=== PATIENT | female | born 1990 | race African-American/Black ===

== ENCOUNTER 2016-12-29 13:01 | Emergency (ER) | payer BC, OTHER ==
[~2016-12-29] VITALS: Ht 170.2 cm; Wt 102.0 kg
[2016-12-29 13:03] VITALS: BP 132/87; PULSE 77; RESP 12; TEMP 98.1; O2SAT 98
--- NOTE | 2016-12-29 13:47 | PD ---
HPI Chief Complaint: Cardiac Complaint Time Seen by Provider: 13:41 Travel History International Travel<30 days: No Contact w/Intl Traveler<30days: No Traveled to known affect area: No History of Present Illness HPI Patient is a 26-year-old female presenting to the emergency department for evaluation of 2 complaints. The first one being difficulty swallowing, patient states that she feels as if things are getting stuck in her throat. She has been able to get fluids down but avoids foods that are hard to swallow. She reports a history of bulimia and for the last 2 months anytime she eats anything solid she vomits. Her second complaint is a feeling of tightness in her chest with palpitations. She states this is been going on for approximately 9 days. It is accompanied by shortness of breath and left arm numbness. Patient does report a history of anxiety with panic attacks. She denies any headaches, abdominal pain, back pain, diarrhea. She reports a history of heart disease in her grandmother. Patient is a daily smoker but denies any significant alcohol use. She states that she did quit smoking marijuana approximately one month ago. [facility] Past Medical History Anxiety: Yes Depression: Yes Heart Rhythm Problems: Yes (history of palpitations) Diminished Hearing: No Medical other: Yes (history of bulimia) Musculoskeletal: Yes (chronic lumbar back pain) ?: Not LMP: 12/2016 : 2 Miscarriage: 1 : 1 Ectopic : No Ovarian Cysts: No Dilation and Curettage (D&C): No Tubal Ligation: No Past Surgical History Surgical History: No Previous Surgery Social History Alcohol Use: Yes ([facility]) Tobacco Use: Yes Substance Use: No Allergies-Medications (Allergen,Severity, Reaction): Coded Allergies: No Known Allergies (Verified , 12/29/16) Reported Meds & Prescriptions Reported Meds & Active Scripts Active Zofran (Ondansetron HCl) 4 Mg Tab 4 Mg PO Q6HR PRN Vistaril (Hydroxyzine Pamoate) 50 Mg Cap 50 Mg PO TID PRN Protonix (Pantoprazole Sodium) 20 Mg Tab 20 Mg PO DAILY Zantac (Ranitidine HCl) 150 Mg Tab 150 Mg PO BID PRN Review of Systems Except as stated in HPI: all other systems reviewed are Neg General / Constitutional: No: Fever, Chills Eyes: No: Visual changes HENT: No: Headaches, Lightheadedness, Neck Stiffness Cardiovascular: Positive: Palpitations, Tachycardia, No: Chest Pain or Discomfort Respiratory: Positive: Shortness of Breath (with palpitations) Gastrointestinal: Positive: Nausea, Vomiting, No: Abdominal Pain Neurologic: No: Weakness, Dizziness, Syncope Psychiatric: Positive: Anxiety Physical Exam Narrative GENERAL: Well-developed, well-nourished, alert female. Resting comfortably in no acute distress. SKIN: Warm and dry. HEAD: Atraumatic. Normocephalic. EYES: Pupils equal and round. No scleral icterus. No injection or drainage. ENT: No nasal bleeding or discharge. Mucous membranes pink and moist. NECK: Trachea midline. No JVD. CARDIOVASCULAR: Regular rate and rhythm. No murmur appreciated. RESPIRATORY: No accessory muscle use. Clear to auscultation. Breath sounds equal bilaterally. GASTROINTESTINAL: Abdomen soft, non-tender, nondistended. Hepatic and splenic margins not palpable. MUSCULOSKELETAL: No obvious deformities. No clubbing. No cyanosis. No edema. NEUROLOGICAL: Awake and alert. No obvious cranial nerve deficits. Motor grossly within normal limits. Normal speech. PSYCHIATRIC: Anxious mood and affect; insight and judgment normal. Data Data Last Documented VS Vital Signs Date Time Temp Pulse Resp B/P Pulse Ox O2 Delivery O2 Flow Rate FiO2 12/29/16 16:03 98 Room Air 12/29/16 15:37 71 15 119/70 12/29/16 13:03 98.1 Orders Electrocardiogram (12/29/16 13:35) Ckmb (Isoenzyme) Profile (12/29/16 13:35) Complete Blood Count With Diff (12/29/16 13:35) Comprehensive Metabolic Panel (12/29/16 13:35) Magnesium (Mg) (12/29/16 13:35) Prothrombin Time / Inr (Pt) (12/29/16 13:35) Act Partial Throm Time (Ptt) (12/29/16 13:35) Troponin I (12/29/16 13:35) Thyroid Stimulating Hormone (12/29/16 13:35) Barium Swallow (12/29/16 ) Chest, Single Ap (12/29/16 ) Ondansetron Inj (Zofran Inj) (12/29/16 16:00) Pantoprazole Inj (Protonix Inj) (12/29/16 16:00) Famotidine Inj (Pepcid Inj) (12/29/16 16:00) Al-Mag Hy-Si 40-40-4 Mg/Ml Liq (Mag-Al P (12/29/16 16:00) Lidocaine 2% Viscous (Xylocaine 2% Visco (12/29/16 16:00) Ed Urine Pregnancytest Poc (12/29/16 16:02) CKMB (12/29/16 15:20) CKMB% (12/29/16 15:20) Labs Laboratory Tests Test 12/29/16 15:20 White Blood Count 13.4 TH/MM3 Red Blood Count 4.09 MIL/MM3 Hemoglobin 12.4 GM/DL Hematocrit 37.8 % Mean Corpuscular Volume 92.5 FL Mean Corpuscular Hemoglobin 30.5 PG Mean Corpuscular Hemoglobin 32.9 % Concent Red Cell Distribution Width 13.2 % Platelet Count 347 TH/MM3 Mean Platelet Volume 7.4 FL Neutrophils (%) (Auto) 76.6 % Lymphocytes (%) (Auto) 15.4 % Monocytes (%) (Auto) 6.1 % Eosinophils (%) (Auto) 1.4 % Basophils (%) (Auto) 0.5 % Neutrophils # (Auto) 10.3 TH/MM3 Lymphocytes # (Auto) 2.1 TH/MM3 Monocytes # (Auto) 0.8 TH/MM3 Eosinophils # (Auto) 0.2 TH/MM3 Basophils # (Auto) 0.1 TH/MM3 CBC Comment DIFF FINAL Differential Comment Prothrombin Time 10.3 SEC Prothromb Time International 0.9 RATIO Ratio Activated Partial 25.3 SEC Thromboplast Time Sodium Level 139 MEQ/L Potassium Level 3.6 MEQ/L Chloride Level 106 MEQ/L Carbon Dioxide Level 24.9 MEQ/L Anion Gap 8 MEQ/L Blood Urea Nitrogen 13 MG/DL Creatinine 0.70 MG/DL Estimat Glomerular Filtration 122 ML/MIN Rate Random Glucose 87 MG/DL Calcium Level 8.5 MG/DL Magnesium Level 1.9 MG/DL Total Bilirubin 0.2 MG/DL Aspartate Amino Transf 17 U/L (AST/SGOT) Alanine Aminotransferase 23 U/L (ALT/SGPT) Alkaline Phosphatase 54 U/L Total Creatine Kinase 135 U/L Creatine Kinase MB LESS THAN 0.5 NG/ML Troponin I LESS THAN 0.02 NG/ML Total Protein 7.3 GM/DL Albumin 3.7 GM/DL Thyroid Stimulating Hormone 1.640 uIU/ML 3rd Gen [facility] Medical Decision Making Medical Screen Exam Complete: Yes Emergency Medical Condition: Yes Interpretation(s) Vital Signs Date Time Temp Pulse Resp B/P Pulse Ox O2 Delivery O2 Flow Rate FiO2 12/29/16 13:03 98.1 77 12 132/87 98 Room Air Differential Diagnosis Esophageal strictures versus obstruction versus esophagitis versus anxiety attack versus cardiac arrhythmia versus AMI versus other Narrative Course Patient is a 26-year-old female presenting to the emergency department with 2 separate complaints, one is difficulty swallowing and vomiting. The second is chest tightness and palpitations. EKG, labs ordered and pending. Patient has a history of bulimia, she could be suffering from esophagitis, GERD, strictures. Additionally patient has a history of anxiety with panic attacks. At this time we will check electrolytes, cardiac enzymes, EKG, TSH. Patient will be placed in a medical bed in care of be assumed by provider when available. Patient's vital signs are currently stable. Scripts Ondansetron (Zofran)4 Mg Tab4 Mg PO Q6HR PRN (NAUSEA OR VOMITING) #15 TAB Ref 0 Prov:Bruna Reilly MD 12/29/16 Hydroxyzine Pamoate (Vistaril)50 Mg Cap50 Mg PO TID PRN (ANXIETY) #15 CAP Ref 0 Prov:Bruna Reilly MD 12/29/16 Pantoprazole (Protonix)20 Mg Tab20 Mg PO DAILY #20 TAB Ref 0 Prov:Bruna Reilly MD 12/29/16 Ranitidine (Zantac)150 Mg [id number] Mg PO BID PRN (PAIN SCALE 1 TO 10) #20 TAB Prov:Bruna Reilly MD 12/29/16 Chelsea Plasencia Dec 29, 2016 13:46
[2016-12-29 15:36] LABS: AUTOMATED NEUTROPHIL # 10.3 TH/MM3 (1.8-7.7); BASOPHIL # 0.1 TH/MM3 (0-0.2); BASOPHIL % 0.5 % (0.0-2.0); EOSINOPHIL # 0.2 TH/MM3 (0-0.4); EOSINOPHIL % 1.4 % (0.0-4.0); HEMATOCRIT 37.8 % (35.0-46.0); HEMO FLAGS DIFF FINAL; LYMPH % 15.4 % (9.0-44.0); LYMPHOCYTE # 2.1 TH/MM3 (1.0-4.8); MEAN CELL VOLUME 92.5 FL (80.0-100.0); MEAN CORPUSCULAR HEMOGLOBIN 30.5 PG (27.0-34.0); MEAN CORPUSCULAR HGB CONC 32.9 % (32.0-36.0); MONO % 6.1 % (0.0-8.0); NEUT % 76.6 % (16.0-70.0); PLATELET COUNT 347 TH/MM3 (150-450); RED BLOOD COUNT 4.09 MIL/MM3 (4.00-5.30); RED CELL DISTRIBUTION WIDTH 13.2 % (11.6-17.2); WHITE BLOOD COUNT 13.4 TH/MM3 (4.0-11.0)
[2016-12-29 15:37] VITALS: BP 119/70; PULSE 71; RESP 15; O2SAT 97
[2016-12-29 15:46] LABS: APTT (PATIENT) 25.3 SEC (24.3-30.1); INTERNATIONAL NORMALIZED RATIO 0.9 RATIO; PROTHROMBIN TIME - PATIENT 10.3 SEC (9.8-11.6)
[2016-12-29 15:57] LABS: ANION GAP 8 MEQ/L (5-15); AST (GOT) 17 U/L (15-37); BICARBONATE 24.9 MEQ/L (21.0-32.0); BLOOD UREA NITROGEN 13 MG/DL (7-18); CHLORIDE 106 MEQ/L (98-107); GLOMERULAR FILTRATION RATE 122 ML/MIN (>89); MAGNESIUM 1.9 MG/DL (1.5-2.5); POTASSIUM 3.6 MEQ/L (3.5-5.1); SODIUM (NA) 139 MEQ/L (136-145)
[2016-12-29] MEDS ORDERED: ALUMINUM/MAGNESIUM/SIMETH 30 ML CUP PO ONE (16:00)
[2016-12-29] MEDS ORDERED: PANTOPRAZOLE SODIUM 40 MG VIAL IVP ONE (16:00)
[2016-12-29] MEDS ORDERED: ONDANSETRON HCL 4 MG/2 ML VIAL IVP ONE (16:00)
[2016-12-29] MEDS ORDERED: LIDOCAINE VISCOUS 2% SOLN 15 ML UDC PO ONE (16:00)
[2016-12-29] MEDS ORDERED: FAMOTIDINE 20 MG/2 ML VIAL IV PUSH ONE (16:00)
--- NOTE | 2016-12-29 16:02 | PD ---
Physical Exam Date Seen by Provider: Dec 29, 2016 Time Seen by Provider: 15:57 Narrative 26-year-old female that presents to the ED for evaluation of trouble swallowing with nausea and vomiting and history of bulimia as well as chest pain secondary to possible anxiety. Patient states that she continues to make herself throw up. Per patient she cannot eat solids secondary to the discomfort. Per patient she cannot keep anything down other than fluids because it causes her to vomit. She does not and this is related to the bulimia or this is related to something else. She states the chest pain comes and goes. Per patient she' s had panic attacks in the past. Per patient he seemed to be worsening for the past couple of days. Patient was seen by Chelsea JOSPEH before her. Please refer to her history and physical for further information. Data Data Last Documented VS Vital Signs Date Time Temp Pulse Resp B/P Pulse Ox O2 Delivery O2 Flow Rate FiO2 12/29/16 16:03 98 Room Air 12/29/16 15:37 71 15 119/70 12/29/16 13:03 98.1 Orders Electrocardiogram (12/29/16 13:35) Ckmb (Isoenzyme) Profile (12/29/16 13:35) Complete Blood Count With Diff (12/29/16 13:35) Comprehensive Metabolic Panel (12/29/16 13:35) Magnesium (Mg) (12/29/16 13:35) Prothrombin Time / Inr (Pt) (12/29/16 13:35) Act Partial Throm Time (Ptt) (12/29/16 13:35) Troponin I (12/29/16 13:35) Thyroid Stimulating Hormone (12/29/16 13:35) Barium Swallow (12/29/16 ) Chest, Single Ap (12/29/16 ) Ondansetron Inj (Zofran Inj) (12/29/16 16:00) Pantoprazole Inj (Protonix Inj) (12/29/16 16:00) Famotidine Inj (Pepcid Inj) (12/29/16 16:00) Al-Mag Hy-Si 40-40-4 Mg/Ml Liq (Mag-Al P (12/29/16 16:00) Lidocaine 2% Viscous (Xylocaine 2% Visco (12/29/16 16:00) Ed Urine Pregnancytest Poc (12/29/16 16:02) CKMB (12/29/16 15:20) CKMB% (12/29/16 15:20) Labs Laboratory Tests Test 12/29/16 15:20 White Blood Count 13.4 TH/MM3 Red Blood Count 4.09 MIL/MM3 Hemoglobin 12.4 GM/DL Hematocrit 37.8 % Mean Corpuscular Volume 92.5 FL Mean Corpuscular Hemoglobin 30.5 PG Mean Corpuscular Hemoglobin 32.9 % Concent Red Cell Distribution Width 13.2 % Platelet Count 347 TH/MM3 Mean Platelet Volume 7.4 FL Neutrophils (%) (Auto) 76.6 % Lymphocytes (%) (Auto) 15.4 % Monocytes (%) (Auto) 6.1 % Eosinophils (%) (Auto) 1.4 % Basophils (%) (Auto) 0.5 % Neutrophils # (Auto) 10.3 TH/MM3 Lymphocytes # (Auto) 2.1 TH/MM3 Monocytes # (Auto) 0.8 TH/MM3 Eosinophils # (Auto) 0.2 TH/MM3 Basophils # (Auto) 0.1 TH/MM3 CBC Comment DIFF FINAL Differential Comment Prothrombin Time 10.3 SEC Prothromb Time International 0.9 RATIO Ratio Activated Partial 25.3 SEC Thromboplast Time Sodium Level 139 MEQ/L Potassium Level 3.6 MEQ/L Chloride Level 106 MEQ/L Carbon Dioxide Level 24.9 MEQ/L Anion Gap 8 MEQ/L Blood Urea Nitrogen 13 MG/DL Creatinine 0.70 MG/DL Estimat Glomerular Filtration 122 ML/MIN Rate Random Glucose 87 MG/DL Calcium Level 8.5 MG/DL Magnesium Level 1.9 MG/DL Total Bilirubin 0.2 MG/DL Aspartate Amino Transf 17 U/L (AST/SGOT) Alanine Aminotransferase 23 U/L (ALT/SGPT) Alkaline Phosphatase 54 U/L Total Creatine Kinase 135 U/L Creatine Kinase MB LESS THAN 0.5 NG/ML Troponin I LESS THAN 0.02 NG/ML Total Protein 7.3 GM/DL Albumin 3.7 GM/DL Thyroid Stimulating Hormone 1.640 uIU/ML 3rd Gen [facility] Medical Record Reviewed: Yes Supervised Visit with GRISEL: No Interpretation(s) CBC & BMP Diagram 12/29/16 15:20 Chest x-ray negative. Barium swallow did show reducible hernia but otherwise unremarkable. Differential Diagnosis Strictures versus esophagitis versus gastritis versus GERD versus anxiety versus panic attack versus less likely cardiac disease. Narrative Course 26-year-old female that presents to the ED for evaluation of chest pain and inability to swallow. Patient was properly examined and was found to have signs and symptoms consistent with appears to be esophagitis with possible strictures versus diverticula to the esophagus. Chest pain to me appears to be more related to GERD as well as anxiety. I do not believe this is cardiac. Initial EKG was unremarkable. Patient already had blood drawn before coming to the medical pot. I added a barium swallow to better evaluate for stricture or structural problem with esophagus secondary to her history of bulimia and chronic throwing up. Patient was given Protonix and Zantac as well as malox. Labs and imaging showed no sign of acute disease. Patient was for sure. From history and physical this appears to be anxiety as well as GERD. Patient will be given prescriptions for Zantac, for tonics and Vistaril for her anxiety. Patient was told that she needs to follow up closely with GI for evaluation of the GERD as she is at higher risk of having Serna's esophagus. She agrees and understands. See ED if worsening symptoms. Follow with PCP. Diagnosis Primary Impression: GERD (gastroesophageal reflux disease) Qualified Code: K21.0 - Gastroesophageal reflux disease with esophagitis Additional Impression: Anxiety Patient Instructions: General Instructions Additional Instruction: Take medication as prescribed. Follow with GI specialist for EGD workup and evaluation for your swallowing problems. See ED for any worsening symptoms. Drink plenty of fluids. Med/Other Pt SpecificInfo: Prescription(s) given Scripts Ondansetron (Zofran)4 Mg Tab4 Mg PO Q6HR PRN (NAUSEA OR VOMITING) #15 TAB Ref 0 Prov:Bruna Reilly MD 12/29/16 Hydroxyzine Pamoate (Vistaril)50 Mg Cap50 Mg PO TID PRN (ANXIETY) #15 CAP Ref 0 Prov:Bruna Reilly MD 12/29/16 Pantoprazole (Protonix)20 Mg Tab20 Mg PO DAILY #20 TAB Ref 0 Prov:Bruna Reilly MD 12/29/16 Ranitidine (Zantac)150 Mg [id number] Mg PO BID PRN (PAIN SCALE 1 TO 10) #20 TAB Prov:Bruna Reilly MD 12/29/16 Disposition: 01 DISCHARGE HOME Condition: Wan Butterfield Dec 29, 2016 16:02
[2016-12-29 16:07] LABS: ALKALINE PHOSPHATASE 54 U/L (45-117); ALT (GPT) 23 U/L (10-53); CREATINE KINASE 135 U/L (26-192); TOTAL BILIRUBIN ADULT 0.2 MG/DL (0.2-1.0)
[2016-12-29 16:19] LABS: CKMB LESS THAN 0.5 NG/ML (0.5-3.6)
--- NOTE | 2016-12-29 16:41 | PD ---
Data Data Last Documented VS Vital Signs Date Time Temp Pulse Resp B/P Pulse Ox O2 Delivery O2 Flow Rate FiO2 12/29/16 16:03 98 Room Air 12/29/16 15:37 71 15 119/70 12/29/16 13:03 98.1 Orders Electrocardiogram (12/29/16 13:35) Ckmb (Isoenzyme) Profile (12/29/16 13:35) Complete Blood Count With Diff (12/29/16 13:35) Comprehensive Metabolic Panel (12/29/16 13:35) Magnesium (Mg) (12/29/16 13:35) Prothrombin Time / Inr (Pt) (12/29/16 13:35) Act Partial Throm Time (Ptt) (12/29/16 13:35) Troponin I (12/29/16 13:35) Thyroid Stimulating Hormone (12/29/16 13:35) Barium Swallow (12/29/16 ) Chest, Single Ap (12/29/16 ) Ondansetron Inj (Zofran Inj) (12/29/16 16:00) Pantoprazole Inj (Protonix Inj) (12/29/16 16:00) Famotidine Inj (Pepcid Inj) (12/29/16 16:00) Al-Mag Hy-Si 40-40-4 Mg/Ml Liq (Mag-Al P (12/29/16 16:00) Lidocaine 2% Viscous (Xylocaine 2% Visco (12/29/16 16:00) Ed Urine Pregnancytest Poc (12/29/16 16:02) CKMB (12/29/16 15:20) CKMB% (12/29/16 15:20) Labs Laboratory Tests Test 12/29/16 15:20 White Blood Count 13.4 TH/MM3 Red Blood Count 4.09 MIL/MM3 Hemoglobin 12.4 GM/DL Hematocrit 37.8 % Mean Corpuscular Volume 92.5 FL Mean Corpuscular Hemoglobin 30.5 PG Mean Corpuscular Hemoglobin 32.9 % Concent Red Cell Distribution Width 13.2 % Platelet Count 347 TH/MM3 Mean Platelet Volume 7.4 FL Neutrophils (%) (Auto) 76.6 % Lymphocytes (%) (Auto) 15.4 % Monocytes (%) (Auto) 6.1 % Eosinophils (%) (Auto) 1.4 % Basophils (%) (Auto) 0.5 % Neutrophils # (Auto) 10.3 TH/MM3 Lymphocytes # (Auto) 2.1 TH/MM3 Monocytes # (Auto) 0.8 TH/MM3 Eosinophils # (Auto) 0.2 TH/MM3 Basophils # (Auto) 0.1 TH/MM3 CBC Comment DIFF FINAL Differential Comment Prothrombin Time 10.3 SEC Prothromb Time International 0.9 RATIO Ratio Activated Partial 25.3 SEC Thromboplast Time Sodium Level 139 MEQ/L Potassium Level 3.6 MEQ/L Chloride Level 106 MEQ/L Carbon Dioxide Level 24.9 MEQ/L Anion Gap 8 MEQ/L Blood Urea Nitrogen 13 MG/DL Creatinine 0.70 MG/DL Estimat Glomerular Filtration 122 ML/MIN Rate Random Glucose 87 MG/DL Calcium Level 8.5 MG/DL Magnesium Level 1.9 MG/DL Total Bilirubin 0.2 MG/DL Aspartate Amino Transf 17 U/L (AST/SGOT) Alanine Aminotransferase 23 U/L (ALT/SGPT) Alkaline Phosphatase 54 U/L Total Creatine Kinase 135 U/L Creatine Kinase MB LESS THAN 0.5 NG/ML Troponin I LESS THAN 0.02 NG/ML Total Protein 7.3 GM/DL Albumin 3.7 GM/DL Thyroid Stimulating Hormone 1.640 uIU/ML 3rd Gen MDM Supervised Visit with GRISEL: Yes Narrative Course I, Dr. Reilly, have reviewed the advance practice practioner's documentation and am in agreement, met with the patient face to face, made the diagnosis, and the medical decision making was done by me. *My assessment and Findings: 28-year-old female with history of bulimia here with complaint of dysphasia, feels as though she gets food stuck when she tries to swallow and has associated nausea/vomiting. Secondly she also complains of a slight amount of chest discomfort, this is most notable with the difficulty swallowing. Her exam is unremarkable, regular rate and rhythm, clear to auscultation bilaterally. My strong suspicion is that her symptoms are due to GERD, but with her history of bulimia she certainly could have stricture, Schatzki ring, achalasia, etc. Laboratory workup and EKG were unremarkable. Barium swallow pending. If this is normal we'll discharge to home with PPI and outpatient GI follow-up. Scripts No Active Prescriptions or Reported Meds Bruna Reilly MD Dec 29, 2016 16:41
--- NOTE | 2016-12-29 16:56 | RADRPT ---
EXAM DATE/TIME: 12/29/2016 15:49 [facility] COMPARISON: No previous studies available for comparison. INDICATIONS : Evaluate for stricture FLUORO TIME: 1.5 minutes IMAGE COUNT: 13 CONTRAST: 1. Liquid E-Z Paque Barium Sulfate (60% w/v, 41% w.w) MEDICAL HISTORY : None. SURGICAL HISTORY : None. ENCOUNTER: Initial ACUITY: 1 week PAIN SCORE: 3/10 LOCATION: esophagus FINDINGS: Air-contrast views of the hypopharynx demonstrate a normal mucosal surface without filling defect. R apid sequence images of the hypopharynx and cervical esophagus during the passage of barium demonstra te a normal swallowing function. No evidence of aspiration. Multiphasic examination of the esophagu s demonstrates no esophageal fold thickening, ulceration, or filling defect. There is a small reducib le hiatal hernia with no evidence of gastroesophageal reflux. CONCLUSION: Small reducible hiatal hernia with no evidence of gastroesophageal reflux. Geovany Lu MD on December 29, 2016 at 16:53 Board Certified Radiologist. This report was verified electronically.
--- NOTE | 2016-12-29 16:57 | RADRPT ---
EXAM DATE/TIME: 12/29/2016 16:04 [facility] COMPARISON: CHEST SINGLE AP, July 16, 2016, 8:32. INDICATIONS : Chest pain MEDICAL HISTORY : None. SURGICAL HISTORY : None. ENCOUNTER: Initial ACUITY: 1 week PAIN SCORE: 2/10 LOCATION: Bilateral chest FINDINGS: A single view of the chest demonstrates the lungs to be symmetrically aerated without evidence of mas s, infiltrate or effusion. The cardiomediastinal contours are unremarkable. Osseous structures are intact. CONCLUSION: No acute disease. Geovany Lu MD on December 29, 2016 at 16:54 Board Certified Radiologist. This report was verified electronically.
[2016-12-29] MEDS ORDERED: VIST50CA PO (17:00)
[2016-12-29] MEDS ORDERED: ZANT150T2 PO (17:00)
[2016-12-29] MEDS ORDERED: ZOFR4TAB PO (17:00)
[2016-12-29] MEDS ORDERED: PANT20 PO (17:00)
--- NOTE | 2016-12-30 09:23 | EKG ---
Date Performed: 12/29/2016 Time Performed: 15:12:46 PTAGE: 26 years EKG: Sinus rhythm NORMAL ECG PREVIOUS TRACING : 07/16/2016 08.45 Compared to prior tracing no significant change DOCTOR: Krzysztof Edge Interpretating Date/Time 12/30/2016 09:22:40
== END 2016-12-29 17:43 | disposition home or self-care (01) ==
LOC: NEPE 13:01
DX: K21.9 Gastro-esophageal reflux disease without esophagitis (principal); R00.2 Palpitations; R06.02 Shortness of breath; R11.2 Nausea with vomiting, unspecified; R13.10 Dysphagia, unspecified; R07.9 Chest pain, unspecified; Z72.0 Tobacco use
CPT/HCPCS: 71010; 74230; 80053; 82550; 82552; 83735; 84443; 84484; 84703; 85025; 85610; 85730; 93005; 96374; 96375; 99285; C9113; J2405

== ENCOUNTER 2018-03-03 16:49 | Emergency (ER) | payer BC, OTHER ==
[~2018-03-03] VITALS: Ht 170.2 cm; Wt 110.0 kg
[~2018-03-03 16:49] MED LIST: PANT20 PO; VIST50CA PO; ZANT150T2 PO; ZOFR4TAB PO
[2018-03-03 16:52] VITALS: BP 141/65; PULSE 82; RESP 17; TEMP 98.4; O2SAT 99
--- NOTE | 2018-03-03 18:27 | PD ---
HPI Chief Complaint: Related Problem Time Seen by Provider: 18:00 Travel History International Travel<30 days: No Contact w/Intl Traveler<30days: No Traveled to known affect area: No History of Present Illness HPI 27-year-old female, approximately 7 weeks , presents to the emergency department with complaint of lower abdominal cramping that comes and goes for the past couple days. Denies vaginal bleeding, discharge, leaking. Denies dysuria, hematuria. Reports urine frequency. Reports normal nausea and vomiting for . Says she is only vomited a couple times in the past couple weeks. Denies fevers. Says she is high risk due to her progesterone levels. She has history of 2 other miscarriages. She has no live births or living children. Last menstrual period January 09. Her nutrition program instructor is Chanel from [facility]. She followed up with her OB in regards to her abdominal cramping and they sent progesterone levels. The patient's cramping has worsened and she is concerned. She denies cramping at this time. She says when it occurs they are 8/10. Describes as cramping. Has taken ibuprofen for symptom management. No known aggravating or relieving factors. No primary care provider. No known allergies. Denies significant past medical history. Has no other medical complaints. No other modifying factors or associated signs and symptoms. PFSH Past Medical History Anxiety: Yes Depression: Yes Heart Rhythm Problems: Yes (history of palpitations) Diminished Hearing: No Musculoskeletal: Yes (chronic lumbar back pain) ?: : 2 Para: 0 Miscarriage: 1 : 1 Ectopic : No Ovarian Cysts: No Dilation and Curettage (D&C): No Tubal Ligation: No Past Surgical History Surgical History: No Previous Surgery Social History Alcohol Use: Yes (OCC) Tobacco Use: Yes Substance Use: No Allergies-Medications (Allergen,Severity, Reaction): Coded Allergies: No Known Allergies (Verified , 12/29/16) Reported Meds & Prescriptions Reported Meds & Active Scripts Active Zofran (Ondansetron HCl) 4 Mg Tab 4 Mg PO Q6HR PRN Vistaril (Hydroxyzine Pamoate) 50 Mg Cap 50 Mg PO TID PRN Protonix (Pantoprazole Sodium) 20 Mg Tab 20 Mg PO DAILY Zantac (Ranitidine HCl) 150 Mg Tab 150 Mg PO BID PRN Review of Systems Except as stated in HPI: all other systems reviewed are Neg Physical Exam Narrative GENERAL: Well-nourished, well-developed black female patient, in no acute distress SKIN: Warm and dry. No rash. HEAD: Atraumatic. Normocephalic. EYES: Pupils equal and round. No scleral icterus. No injection or drainage. ENT: Mucosa pink and moist. NECK: Trachea midline. CARDIOVASCULAR: Regular rate and rhythm. No murmur appreciated. RESPIRATORY: No accessory muscle use. Clear to auscultation. Breath sounds equal bilaterally. GASTROINTESTINAL: Abdomen soft, non-tender, nondistended. Hepatic and splenic margins not palpable. Bowel sounds are active 4 quadrants. MUSCULOSKELETAL: No obvious deformities. No clubbing. No cyanosis. No edema. BACK: No CVA tenderness NEUROLOGICAL: Awake and alert. Oriented 3. No obvious cranial nerve deficits. Motor grossly within normal limits. Normal speech. Moves all extremities. 5/5 strength to all extremities. PSYCHIATRIC: Appropriate mood and affect; insight and judgment normal. Data Data Last Documented VS Vital Signs Date Time Temp Pulse Resp B/P (MAP) Pulse Ox O2 Delivery O2 Flow Rate FiO2 03/03/18 16:52 98.4 82 17 141/65 (90) 99 Orders Orders Beta Hcg (Quant/Titer) (03/03/18 18:08) Urinalysis - C+S If Indicated (03/03/18 18:08) Ed Urine Pregnancytest Poc (03/03/18 18:08) Acetaminophen (Tylenol) (03/03/18 18:30) Ed Poc Ultrasound (03/03/18 ) Labs Laboratory Tests Test 03/03/18 18:21 03/03/18 18:30 Urine Color YELLOW Urine Turbidity CLEAR Urine pH 6.0 Urine Specific [place] 1.022 Urine Protein TRACE mg/dL Urine Glucose (UA) NEG mg/dL Urine Ketones NEG mg/dL Urine Occult Blood NEG Urine Nitrite NEG Urine Bilirubin NEG Urine Urobilinogen 2.0 MG/DL Urine Leukocyte Esterase NEG Urine RBC 1 /hpf Urine WBC 3 /hpf Urine Squamous Epithelial Cells 2 /hpf Urine Mucus MANY /lpf Microscopic Urinalysis Comment CULT NOT INDICATED MDM Medical Decision Making Medical Screen Exam Complete: Yes Emergency Medical Condition: Yes Medical Record Reviewed: Yes Differential Diagnosis Threatened miscarriage, intrauterine , ectopic , UTI, cystitis Narrative Course 27-year-old female approximately 7 weeks with abdominal cramping that comes and goes for the past couple days. Denies vaginal bleeding, leaking, discharge. Reports increased urine frequency. Beta-hCG, UPT, urinalysis, pelvic ultrasound, Tylenol ordered 1914: Dr. Trent performed a [id number] bedside ultrasound with confirmed intrauterine and heartbeat of 136 bpm. Instructed patient to follow- up with nutrition program instructor. Instructed patient to follow up with primary care provider. Patient verbalizes understanding and agreement with treatment plan. Patient is medically cleared and stable for discharge. Discussed reasons to return to the emergency department. Patient agrees with treatment plan. The patients vital signs are stable and the patient is stable for outpatient follow- up and treatment. Patient discharged home, stable and in no acute distress. Diagnosis Primary Impression: Intrauterine Referrals: [facility] Therapy Rn Primary Care Physician Patient Instructions: First Trimester (ED), General Instructions Additional Instructions: Tylenol as needed and as directed for pain Drink lots of fluids Follow-up with nutrition program instructor Return to the emergency department immediately with worsening of symptoms Med/Other Pt SpecificInfo: No Change to Meds, No Meds Exist/No RX given Disposition: 01 DISCHARGE HOME Condition: Stable Edelmira Lockhart Mar 03, 2018 18:27
[2018-03-03] MEDS ORDERED: ACETAMINOPHEN 325 MG TAB PO ONE (18:30)
[2018-03-03 19:01] LABS: BILIRUBIN, URINE NEG (NEG); BLOOD, URINE NEG (NEG); GLUCOSE,URINE NEG (NEG); KETONE, URINE NEG (NEG); MUCUS URINE MANY /lpf (OCC); NITRITE,URINE NEG (NEG); SQUAMOUS EPITHELIAL CELL URINE 2 /hpf (0-5); URINE COLOR YELLOW (YELLW/STRAW); URINE LEUKOCYTE ESTERASE NEG (NEG)
--- NOTE | 2018-03-03 19:19 | PD ---
Physical Exam Date Seen by Provider: Mar 03, 2018 Time Seen by Provider: 19:17 Narrative 27-year-old female came to the emergency room with history of pelvic cramps. Patient is . She has not had a confirmed IUP with an ultrasound yet. Last menstrual period was January 09, 2018. Patient seen by my nurse practitioner and I am supervising her. I did a bedside pelvic ultrasound to confirm intrauterine . Please refer to my procedure note. Patient tolerated the procedure well. Plan is to discharge the patient home. She does have a trainer/OB who she needs to follow-up with. Data Data Last Documented VS Vital Signs Date Time Temp Pulse Resp B/P (MAP) Pulse Ox O2 Delivery O2 Flow Rate FiO2 03/03/18 16:52 98.4 82 17 141/65 (90) 99 Orders Orders Beta Hcg (Quant/Titer) (03/03/18 18:08) Urinalysis - C+S If Indicated (03/03/18 18:08) Ed Urine Pregnancytest Poc (03/03/18 18:08) Acetaminophen (Tylenol) (03/03/18 18:30) Ed Poc Ultrasound (03/03/18 ) Ed Discharge Order (03/03/18 19:24) Labs Laboratory Tests Test 03/03/18 18:21 03/03/18 18:30 Human Chorionic Gonadotropin, Quant 17170 MIU/ML Urine Color YELLOW Urine Turbidity CLEAR Urine pH 6.0 Urine Specific [place] 1.022 Urine Protein TRACE mg/dL Urine Glucose (UA) NEG mg/dL Urine Ketones NEG mg/dL Urine Occult Blood NEG Urine Nitrite NEG Urine Bilirubin NEG Urine Urobilinogen 2.0 MG/DL Urine Leukocyte Esterase NEG Urine RBC 1 /hpf Urine WBC 3 /hpf Urine Squamous Epithelial Cells 2 /hpf Urine Mucus MANY /lpf Microscopic Urinalysis Comment CULT NOT INDICATED MDM Supervised Visit with GRISEL: Yes Procedures Procedure Narrative Emergency Department Pelvic ultrasound was performed with patient consent. The curvilinear probe was used in the transverse and sagittal views within the suprapubic region revealing single, live intrauterine . heart rate was 136 bpm. Ev Trent MD Mar 03, 2018 19:19
== END 2018-03-03 19:39 | disposition home or self-care (01) ==
LOC: NEPD 16:49
DX: O26.891 Other specified pregnancy related conditions, first trimester (principal); R10.2 Pelvic and perineal pain; R35.0 Frequency of micturition; O21.9 Vomiting of pregnancy, unspecified; Z72.0 Tobacco use; Z86.59 Personal history of other mental and behavioral disorders; Z86.79 Personal history of other diseases of the circulatory system; Z87.39 Personal history of other diseases of the musculoskeletal system and connective tissue; Z87.898 Personal history of other specified conditions; Z3A.01 Less than 8 weeks gestation of pregnancy
CPT/HCPCS: 81001; 84702; 84703

== ENCOUNTER 2018-03-28 20:56 | Emergency (ER) | payer OTHER ==
[~2018-03-28] VITALS: Ht 170.2 cm; Wt 110.0 kg
[2018-03-28 21:02] VITALS: BP 128/71; PULSE 72; RESP 18; TEMP 98.6; O2SAT 100
[2018-03-28 21:17] VITALS: BP 124/80; PULSE 79; RESP 18; O2SAT 100
--- NOTE | 2018-03-28 21:40 | PD ---
HPI Chief Complaint: Headache Time Seen by Provider: 21:14 Travel History International Travel<30 days: No Contact w/Intl Traveler<30days: No Traveled to known affect area: No History of Present Illness HPI 27-year-old female came to the emergency room with history of headache since yesterday. Today she noticed that she had swelling bitemporal area right greater than left. Also when she open her mouth are chewed the right side of her jaw hurt. Patient is concerned about the swelling and hence in the emergency room. No history of fever or chills. No history of trauma. This has never happened to her before. Vital signs are stable. She has not noticed any redness. No radiation of the pain. PFSH Past Medical History Narrative Medical List of her past medical, surgical, social and family history is reviewed from the nursing note Anxiety: Yes Depression: Yes Heart Rhythm Problems: Yes (history of palpitations) Diminished Hearing: No Musculoskeletal: Yes (chronic lumbar back pain) Tetanus Vaccination: Unknown Influenza Vaccination: No ?: Not LMP: 01/11/2018 termination of preg 2 weeks ago : 3 Para: 0 Miscarriage: 1 : 2 Ectopic : No Ovarian Cysts: No Dilation and Curettage (D&C): No Tubal Ligation: No Social History Alcohol Use: Yes (OCC) Tobacco Use: No Substance Use: No Allergies-Medications (Allergen,Severity, Reaction): Coded Allergies: No Known Allergies (Verified Adverse Reaction, Unknown, 03/28/18) Comments No known drug allergies. Reported Meds & Prescriptions Reported Meds & Active Scripts Active Ibuprofen 600 Mg Tab 600 Mg PO Q6H PRN Narrative Medication List of her home medications reviewed from the nursing note Review of Systems Except as stated in HPI: all other systems reviewed are Neg Physical Exam Narrative GENERAL: Awake, alert, obese, mildest SKIN: Focused skin assessment warm/dry. HEAD: Atraumatic. Normocephalic. Bitemporal soft tissue swelling that is nontender to palpation. No redness or warmth to touch. Swelling is nonpulsatile. No lymphadenopathy appreciated pre-auricular or cervical EYES: Pupils equal and round. No scleral icterus. No injection or drainage. ENT: No nasal bleeding or discharge. Mucous membranes pink and moist. NECK: Trachea midline. No JVD. CARDIOVASCULAR: Regular rate and rhythm. No murmur appreciated. RESPIRATORY: No accessory muscle use. Clear to auscultation. Breath sounds equal bilaterally. GASTROINTESTINAL: Abdomen soft, non-tender, nondistended. Hepatic and splenic margins not palpable. MUSCULOSKELETAL: No obvious deformities. No clubbing. No cyanosis. No edema. NEUROLOGICAL: Awake and alert. No obvious cranial nerve deficits. Motor grossly within normal limits. Normal speech. PSYCHIATRIC: Appropriate mood and affect; insight and judgment normal. Data Data Last Documented VS Vital Signs Date Time Temp Pulse Resp B/P (MAP) Pulse Ox O2 Delivery O2 Flow Rate FiO2 03/28/18 21:17 79 18 124/80 (95) 100 Room Air 03/28/18 21:02 98.6 Orders Orders Complete Blood Count With Diff (03/28/18 22:38) Basic Metabolic Panel (Bmp) (03/28/18 22:38) C-Reactive Protein (Crp) (03/28/18 22:38) Ct Facial Bones W Iv Contrast (03/28/18 ) Ketorolac Inj (Toradol Inj) (03/28/18 22:45) Ct Brain W/O Iv Contrast(Rout) (03/28/18 ) Iohexol 350 Inj (Omnipaque 350 Inj) (03/28/18 23:06) Ed Discharge Order (03/28/18 23:30) Labs Laboratory Tests Test 03/28/18 22:55 White Blood Count 9.3 TH/MM3 Red Blood Count 3.61 MIL/MM3 Hemoglobin 10.9 GM/DL Hematocrit 32.0 % Mean Corpuscular Volume 88.6 FL Mean Corpuscular Hemoglobin 30.1 PG Mean Corpuscular Hemoglobin Concent 33.9 % Red Cell Distribution Width 13.5 % Platelet Count 401 TH/MM3 Mean Platelet Volume 7.0 FL Neutrophils (%) (Auto) 47.2 % Lymphocytes (%) (Auto) 38.4 % Monocytes (%) (Auto) 9.4 % Eosinophils (%) (Auto) 3.6 % Basophils (%) (Auto) 1.4 % Neutrophils # (Auto) 4.4 TH/MM3 Lymphocytes # (Auto) 3.6 TH/MM3 Monocytes # (Auto) 0.9 TH/MM3 Eosinophils # (Auto) 0.3 TH/MM3 Basophils # (Auto) 0.1 TH/MM3 CBC Comment DIFF FINAL Differential Comment Blood Urea Nitrogen 14 MG/DL Creatinine 0.52 MG/DL Random Glucose 79 MG/DL Calcium Level 8.6 MG/DL Sodium Level 141 MEQ/L Potassium Level 3.9 MEQ/L Chloride Level 108 MEQ/L Carbon Dioxide Level 27.7 MEQ/L Anion Gap 5 MEQ/L Estimat Glomerular Filtration Rate 171 ML/MIN C-Reactive Protein LESS THAN 0.29 MG/DL MDM Medical Decision Making Medical Screen Exam Complete: Yes Emergency Medical Condition: Yes Medical Record Reviewed: Yes Differential Diagnosis Tumor, TMJ inflammation, TMJ arthritis Narrative Course 11:19 PM awaiting for blood test result. CT of her head and CT facial with IV contrast was ordered. Awaiting for the report. Patient is given Toradol for pain and anti-inflammatory action. 11:30 PM all the test results are back and within normal limit. Patient will be discharged home. Procedures EKG Prior to Arrival: No Diagnosis Primary Impression: Headache Qualified Codes: R51 - Headache Additional Impression: Temporomandibular joint pain Qualified Codes: M26.621 - Arthralgia of right temporomandibular joint Referrals: [facility] Additional Instructions: Take the medications as per the prescription direction. Follow-up with this clinic that has been provided to you on discharge instruction if needed. Eat soft diet for next 24-48 hours until the pain subsides. Med/Other Pt SpecificInfo: Prescription(s) given Scripts Ibuprofen (Ibuprofen) 600 Mg Tab 600 MG PO Q6H Y for Pain/Inflammation, #40 TAB 0 Refills Prov: Ev Trent MD 03/28/18 Disposition: 01 DISCHARGE HOME Condition: Stable Ev Trent MD March 28, 2018 21:40
[2018-03-28] MEDS ORDERED: KETOROLAC TROMETHAMINE 30 MG/ML (IVP) VIAL IV PUSH ONE (22:45)
[2018-03-28 23:05] LABS: AUTOMATED NEUTROPHIL # 4.4 TH/MM3 (1.8-7.7); BASOPHIL # 0.1 TH/MM3 (0-0.2); BASOPHIL % 1.4 % (0.0-2.0); EOSINOPHIL # 0.3 TH/MM3 (0-0.4); EOSINOPHIL % 3.6 % (0.0-4.0); HEMOGLOBIN 10.9 GM/DL (11.6-15.3); LYMPH % 38.4 % (9.0-44.0); LYMPHOCYTE # 3.6 TH/MM3 (1.0-4.8); MEAN CELL VOLUME 88.6 FL (80.0-100.0); MEAN CORPUSCULAR HEMOGLOBIN 30.1 PG (27.0-34.0); MEAN CORPUSCULAR HGB CONC 33.9 % (32.0-36.0); MONO % 9.4 % (0.0-8.0); MONOCYTE # 0.9 TH/MM3 (0-0.9); NEUT % 47.2 % (16.0-70.0); PLATELET COUNT 401 TH/MM3 (150-450); RED BLOOD COUNT 3.61 MIL/MM3 (4.00-5.30); RED CELL DISTRIBUTION WIDTH 13.5 % (11.6-17.2); WHITE BLOOD COUNT 9.3 TH/MM3 (4.0-11.0)
[2018-03-28] MEDS ORDERED: IOHEXOL 350 MG/ML 10 ML VIAL (for RAD DIAG) IVCONTRAST ONE (23:06)
--- NOTE | 2018-03-28 23:18 | RADRPT ---
EXAM DATE/TIME: 03/28/2018 23:03 [facility] COMPARISON: No previous studies available for comparison. INDICATIONS : Headache. RADIATION DOSE: 45.41 CTDIvol (mGy) MEDICAL HISTORY : None SURGICAL HISTORY : None. ENCOUNTER: Initial ACUITY: 1 day PAIN SCALE: 7/10 LOCATION: cranial TECHNIQUE: Multiple contiguous axial images were obtained of the head. Using automated exposure control and adj ustment of the mA and/or kV according to patient size, radiation dose was kept as low as reasonably a chievable to obtain optimal diagnostic quality images. DICOM format image data is available electro nically for review and comparison. FINDINGS: CEREBRUM: The ventricles are normal for age. No evidence of midline shift, mass lesion, hemorrhage or acute in farction. No extra-axial fluid collections are seen. POSTERIOR FOSSA: The cerebellum and brainstem are intact. The 4th ventricle is midline. The cerebellopontine angle i s unremarkable. EXTRACRANIAL: The visualized portion of the orbits is intact. SKULL: The calvaria is intact. No evidence of skull fracture. CONCLUSION: Normal examination. Dwayne Maria MD on March 28, 2018 at 23:14 Board Certified Radiologist. This report was verified electronically.
--- NOTE | 2018-03-28 23:22 | RADRPT ---
EXAM DATE/TIME: 03/28/2018 23:03 [facility] COMPARISON: No previous studies available for comparison. INDICATIONS : Jaw pain. IV CONTRAST: 70 cc Omnipaque 350 (iohexol) IV RADIATION DOSE: 63.62 CTDIvol (mGy) MEDICAL HISTORY : None SURGICAL HISTORY : None. ENCOUNTER: Initial ACUITY: 1 day PAIN SCALE: 6/10 LOCATION: facial TECHNIQUE: Volumetric scanning of the facial bones was performed. Using automated exposure control and adjustme nt of the mA and/or kV according to patient size, radiation dose was kept as low as reasonably achiev able to obtain optimal diagnostic quality images. DICOM format image data is available electronicall y for review and comparison. FINDINGS: ORBITS: The orbital and infraorbital osseous structures are intact. The retroconal structures have a normal configuration. No radiopaque foreign bodies are seen. NASAL BONE: The nasal bone and maxillary spine are intact ZYGOMATIC ARCHES: Symmetric without evidence of fracture. SINUSES: The maxillary, ethmoid and frontal sinuses are intact. No air-fluid levels seen. NASAL CAVITY: The nasal septum is intact and midline. The lacrimal ducts are intact. SOFT TISSUES: No radiopaque foreign bodies seen. No soft-tissue swelling is seen. INTRACRANIAL: No intracranial air seen. CRIBIFORM PLATE: Grossly intact. CONCLUSION: Normal examination for a patient of this age. Dwayne Maria MD on March 28, 2018 at 23:16 Board Certified Radiologist. This report was verified electronically.
[2018-03-28 23:26] LABS: BICARBONATE 27.7 MEQ/L (21.0-32.0); BLOOD UREA NITROGEN 14 MG/DL (7-18); C-REACTIVE PROTEIN LESS THAN 0.29 MG/DL (0.00-0.30); CALCIUM 8.6 MG/DL (8.5-10.1); CHLORIDE 108 MEQ/L (98-107); CREATININE 0.52 MG/DL (0.50-1.00); GLOMERULAR FILTRATION RATE 171 ML/MIN (>89); GLUCOSE,RANDOM 79 MG/DL (74-106); SODIUM (NA) 141 MEQ/L (136-145)
[2018-03-28] MEDS ORDERED: IBUP-232 PO (23:29)
== END 2018-03-29 00:07 | disposition home or self-care (01) ==
LOC: NEPD 20:56
DX: R51 Headache (principal); M26.621 Arthralgia of right temporomandibular joint; R22.0 Localized swelling, mass and lump, head; Z86.79 Personal history of other diseases of the circulatory system; Z87.39 Personal history of other diseases of the musculoskeletal system and connective tissue; Z86.59 Personal history of other mental and behavioral disorders
CPT/HCPCS: 70450; 70487; 80048; 85025; 86140; 96374; 99285; J1885; Q9967